=== PATIENT | male | born 1975 | race Caucasian/White ===

== ENCOUNTER → 2021-06-19 10:09 | Outpatient (REF) | payer OTHER, SELFPAY | LOC: ANHLAB 10:09 | PROVIDERS: PCP Family Medicine; Visit Provider Nurse Practitioner | DX: D23.72 Other benign neoplasm of skin of left lower limb, including hip (principal) | CPT/HCPCS: 88305 ==

== ENCOUNTER 2021-11-27 09:19 | Outpatient (CLI) | payer OTHER, SELFPAY ==
--- NOTE | 2021-11-27 11:30 | NEURO_ITS ---
Impression: # Complains of numbness of upper and lower extremities. # Evolving right Carpal Tunnel Syndrome. # Normal needle/EMG exam. # Clinical correlation recommended. Nerve Conduction Studies Anti Sensory Summary Table Stim Site NR Peak (ms) P-T Amp (?V) Site1 Site2 Delta-P (ms) Dist (cm) Kalyan (m/s) Left Median Anti Sensory (2-3nd Digit) Wrist 3.4 32.2 Wrist 2-3nd Digit 3.4 14.0 41 Wrist 3.6 31.4 Wrist 2-3nd Digit 3.4 14.0 41 Right Median Anti Sensory (2-3nd Digit) Wrist 3.5 56.5 Wrist 2-3nd Digit 3.5 14.0 40 Wrist 3.5 40.0 Wrist 2-3nd Digit 3.5 14.0 40 Left Radial Anti Sensory (Base 1st Digit) Wrist 1.9 27.0 Wrist Base 1st Digit 1.9 0.0 Right Radial Anti Sensory (Base 1st Digit) Wrist 1.9 25.5 Wrist Base 1st Digit 1.9 0.0 Left Sup Fibular Anti Sensory (Ant Lat Mall) 14 cm 3.5 12.6 14 cm Ant Lat Mall 3.5 16.0 46 Right Sup Fibular Anti Sensory (Ant Lat Mall) 14 cm 1.6 62.3 14 cm Ant Lat Mall 1.6 16.0 100 Left Sural Anti Sensory (Lat Mall) Calf 3.2 23.0 Calf Lat Mall 3.2 16.0 50 Right Sural Anti Sensory (Lat Mall) Calf 3.5 19.8 Calf Lat Mall 3.5 16.0 46 Left Ulnar Anti Sensory (5th Digit) Wrist 2.5 59.9 Wrist 5th Digit 2.5 14.0 56 Right Ulnar Anti Sensory (5th Digit) Wrist 2.4 56.4 Wrist 5th Digit 2.4 14.0 58 Motor Summary Table Stim Site NR Onset (ms) O-P Amp (mV) Site1 Site2 Delta-0 (ms) Dist (cm) Kalyan (m/s) Left Median Motor (Abd Poll Brev) Wrist 3.2 5.3 Elbow Wrist 4.5 26.0 58 Elbow 7.7 4.1 Right Median Motor (Abd Poll Brev) Wrist 3.4 7.9 Elbow Wrist 4.6 26.0 57 Elbow 8.0 4.2 Left Peroneal Motor (Vastus Med) Ankle 5.2 1.4 Popit Ankle 7.9 39.0 49 Popit 13.1 1.5 Right Peroneal Motor (Vastus Med) Ankle 4.9 3.1 Popit Ankle 7.0 36.0 51 Popit 11.9 5.2 Left Tibial Motor (Abd Navas Brev) Ankle 4.7 8.0 Knee Ankle 8.0 41.0 51 Knee 12.7 6.2 Right Tibial Motor (Abd Navas Brev) Ankle 4.3 2.9 Knee Ankle 7.7 39.0 51 Knee 12.0 3.1 Left Ulnar Motor (Abd Dig Minimi) Wrist 2.6 6.0 A Elbow Wrist 5.4 32.0 59 A Elbow 8.0 4.3 Right Ulnar Motor (Abd Dig Minimi) Wrist 2.2 9.6 A Elbow Wrist 4.6 27.0 59 A Elbow 6.8 9.0 F Wave Studies NR F-Lat (ms) L-R F-Lat (ms) Left Median (Mrkrs) (Abd Poll Brev) 28.26 0.00 Right Median (Mrkrs) (Abd Poll Brev) 28.26 0.00 Left Peroneal (Mrkrs) (EDB) 47.40 0.75 Right Peroneal (Mrkrs) (EDB) 46.65 0.75 Left Tibial (Mrkrs) (Abd Hallucis) 47.90 0.08 Right Tibial (Mrkrs) (Abd Hallucis) 47.82 0.08 Left Ulnar (Mrkrs) (Abd Dig Min) 27.42 0.80 Right Ulnar (Mrkrs) (Abd Dig Min) 28.22 0.80 EMG Side Muscle Nerve Root Ins Act Fibs Amp Dur Recrt Comment Right 1stDorInt Ulnar C8-T1 Nml Nml Nml Nml Nml Right Ext Indicis Radial (Post Int) C7-8 Nml Nml Nml Nml Nml Right Ext Digitorum Radial (Post Int) C7-8 Nml Nml Nml Nml Nml Right BrachioRad Radial C5-6 Nml Nml Nml Nml Nml Right PronatorTeres Median C6-7 Nml Nml Nml Nml Nml Right Abd Poll Brev Median C8-T1 Nml Nml Nml Nml Nml Right AntTibialis Dp Br Fibular L4-5 Nml Nml Nml Nml Nml Right Gastroc Tibial S1-2 Nml Nml Nml Nml Nml Right
== END 2021-11-27 09:20 | disposition home or self-care (01) ==
LOC: ANHNEURO 09:20
PROVIDERS: PCP Family Medicine; Visit Provider Physician Assistant
DX: R20.2 Paresthesia of skin (principal); G56.01 Carpal tunnel syndrome, right upper limb
CPT/HCPCS: 95886; 95913

== ENCOUNTER → 2023-05-31 11:58 | Outpatient (CLI) | payer OTHER, SELFPAY ==
--- NOTE | ~2023-05-31 | XR_ITS ---
EXAMINATION:XR_CERV2-3V_CR DATE: 05/31/2023 12:57 INDICATION: Bilateral paresthesias of the hands and feet TECHNIQUE: AP, lateral, lateral swimmers and odontoid views of the cervical spine are provided. COMPARISON: None FINDINGS: Alignment is normal. The odontoid process is intact. No fracture is identified. Vertebral b mahesh heights and disk spaces are normal. Prevertebral soft tissues are normal. IMPRESSION: 1. Unremarkable cervical spine. Reviewed, dictated and finalized at location A.
== END ==
PROVIDERS: PCP Family Medicine; Visit Provider Family Medicine
DX: R20.2 Paresthesia of skin (principal)
CPT/HCPCS: 72040

== ENCOUNTER → 2023-06-04 12:24 | Outpatient (CLI) | payer OTHER, SELFPAY ==
--- NOTE | ~2023-06-04 | XR_ITS ---
EXAMINATION: XR ribs LT 2V w CXR 2V DATE: 06/04/2023 12:48 INDICATION: Chest pain TECHNIQUE: Upright frontal and lateral views of the chest and 3 views of the left ribs were obtained. COMPARISON: None FINDINGS: No rib fractures identified. Lungs are clear with no focal airspace opacities, pulmonary edema, pleur al effusion or pneumothorax. Cardiomediastinal silhouette is normal. IMPRESSION: 1. No rib fracture or acute cardiopulmonary disease. Reviewed, dictated and finalized at location A.
== END ==
PROVIDERS: PCP Physician Assistant; Visit Provider Physician Assistant
DX: R07.9 Chest pain, unspecified (principal)
CPT/HCPCS: 71046; 71100

== ENCOUNTER 2023-06-22 10:00 | Outpatient (CLI) | payer OTHER, SELFPAY ==
--- NOTE | 2023-06-22 10:03 | EST_ITS ---
Patient Info Name: Villa Oliveira Age: 47 years : 1975 Gender: Male Ht: 66 in Wt: 210 lbs BSA: 2.14 m2 Exam Date: 06/22/2023 10:35 AM Exam Location: [facility] Stress Patient Status: Outpatient Admit Date: 06/22/2023 Staff Ordering Physician: Jeffrey Taylor PA-C Attending Provider: Jeffrey Taylor PA-C Exercise Technologist: Ivory Solorzano RDCS Nurse: Dunia Pak APN Exercise Physician: Harry Stevens DO Exam Type: CA stress test treadmill Study Info Indications R07.9 - Chest pain, unspecified A treadmill exercise stress test was performed. Summary 1. 1. Negative Hernan exercise stress test for ischemic ST changes by ECG criteria. 2. 2. Good functional capacity, achieving 12 METs of workload. 3. 3. Baseline hypertension. 4. 4. Appropriate HR response to exercise. 5. 5. Appropriate HR recovery at 1 minute post exercise. 6. 6. No imaging with stress testing. 7. 7. Patient informed of the above results. Protocol: Hernan Stress ECG Details Stage: REST Duration (min): 1 min : 4 sec Speed (mph): 0.0 Grade (%): 0 HR (bpm): 66 SBP (mmHg): 131 DBP (mmHg): 100 METS: --- Stage: REST Duration (min): 4 min : 37 sec Speed (mph): 0.0 Grade (%): 0 HR (bpm): 68 SBP (mmHg): 131 DBP (mmHg): 100 METS: --- Stage: STAGE 1 Duration (min): 1 min : 0 sec Speed (mph): 1.7 Grade (%): 10 HR (bpm): 92 SBP (mmHg): 131 DBP (mmHg): 100 METS: --- Stage: STAGE 1 Duration (min): 2 min : 0 sec Speed (mph): 1.7 Grade (%): 10 HR (bpm): 98 SBP (mmHg): 131 DBP (mmHg): 100 METS: --- Stage: STAGE 1 Duration (min): 3 min : 0 sec Speed (mph): 1.7 Grade (%): 10 HR (bpm): 98 SBP (mmHg): 157 DBP (mmHg): 89 METS: --- Stage: STAGE 2 Duration (min): 1 min : 0 sec Speed (mph): 2.5 Grade (%): 12 HR (bpm): 105 SBP (mmHg): 157 DBP (mmHg): 89 METS: --- Stage: STAGE 2 Duration (min): 2 min : 0 sec Speed (mph): 2.5 Grade (%): 12 HR (bpm): 113 SBP (mmHg): 137 DBP (mmHg): 90 METS: --- Stage: STAGE 2 Duration (min): 3 min : 0 sec Speed (mph): 2.5 Grade (%): 12 HR (bpm): 114 SBP (mmHg): 137 DBP (mmHg): 90 METS: --- Stage: STAGE 3 Duration (min): 1 min : 0 sec Speed (mph): 3.4 Grade (%): 14 HR (bpm): 122 SBP (mmHg): 142 DBP (mmHg): 88 METS: --- Stage: STAGE 3 Duration (min): 2 min : 0 sec Speed (mph): 3.4 Grade (%): 14 HR (bpm): 126 SBP (mmHg): 142 DBP (mmHg): 88 METS: --- Stage: STAGE 3 Duration (min): 3 min : 0 sec Speed (mph): 3.4 Grade (%): 14 HR (bpm): 132 SBP (mmHg): 142 DBP (mmHg): 88 METS: --- Stage: STAGE 4 Duration (min): 1 min : 0 sec Speed (mph): 4.2 Grade (%): 16 HR (bpm): 153 SBP (mmHg): 142 DBP (mmHg): 88 METS: --- Stage: STAGE 4 Duration (min): 2 min : 0 sec Speed (mph): 4.2 Grade (%): 16 HR (bpm): 165 SBP (mmHg): 142 DBP (mmHg): 88 METS:
== END 2023-06-22 10:01 | disposition home or self-care (01) ==
LOC: ANHCARD 10:01
PROVIDERS: PCP Family Medicine; Visit Provider Physician Assistant
DX: R07.9 Chest pain, unspecified (principal)
CPT/HCPCS: 93017

== ENCOUNTER 2023-06-28 09:34 | Day surgery (SDC) | payer OTHER, SELFPAY ==
[2023-05-26 14:21] VITALS: BMI 34.5
[2023-06-08 08:59] VITALS: BMI 34.1
--- NOTE | 2023-06-28 11:24 | P.HP_ITS ---
History of Present Illness History of Present Illness Consent: Risks, benefits, and alternatives have been discussed and questions answered. Patient agrees to proceed with procedure. Chief complaint: Neoplasm Screening Narrative: Villa Oliveira is a 47 year old male Presents for screening colonoscopy. Patient reports that his current weight appetite and bowel movements. Patient denies abdominal pain. Has had no bleeding. Family history is noncontributory. Review of Systems Review of Systems: Review of systems noncontributory. [facility] Surgical History Surgical History History of appendectomy History of vasectomy Family History Family History Father Hypertension Mother Hypertension Social History Social History Smoking status: Never smoker Second hand tobacco smoke exposure: No Alcohol intake: current Drinks per week: 10 Substance use: never Substance use type: does not use Living arrangements: with family Occupation/Education: occupation Gender identity (if verbalized by the patient): Male Spiritual care concerns: No Meds Home Medications and Allergies Home Medications Medication Instructions Recorded Confirmed Type gabapentin 300 mg capsule 300 mg PO QHS #90 caps 03/09/23 06/28/23 Rx scopolamine base 1 mg over 3 days 1 patch transdermal Q3D PRN motion 03/09/23 06/28/23 Rx transdermal patch sickness #4 ea sodium,potassium,mag sulfates 17.5 See Rx Instructions PO .COMPLEX 05/26/23 06/28/23 Rx gram-3.13 gram-1.6 gram oral soln #354 mL (Suprep Bowel Prep Kit) lisinopril 10 mg tablet 10 mg PO DAILY #90 tabs 06/01/23 06/28/23 Rx Allergies Allergy/AdvReac Type Severity Reaction Status Date / Time No Known Allergies Allergy Unknown Verified 06/28/23 11:22 Exam Narrative: Physical exam reveals patient to be alert. Vital signs stable. He T exam is unremarkable. Patient is anicteric. Lungs are clear to auscultation and percussion. Heart is without murmur or extra sounds. Abdomen bowel sounds are present soft nontender with no organomegaly. Digital external rectal exam is normal. Assessment and Plan Assessment and plan (1) Encounter for screening colonoscopy: Code(s): Z12.11 - Encounter for screening for malignant neoplasm of colon Status: Acute Assessment and Plan: Dense for screening colonoscopy. He appears to be at average risk for colon polyps. Further recommended given after endoscopy.
[2023-06-28 11:27] VITALS: BP 136/95; PULSE 72; RESP 16; TEMP 37; O2SAT 100
[2023-06-28] MEDS: LACTATED RINGERS 1,000 ML 150 ML IV CONT (11:30)
--- NOTE | 2023-06-28 11:42 | P.PNAN_ITS ---
Anes - Initial Pre Proc Eval Procedure: Operation Date: 06/28/23 12:30 Proposed Procedures p Screening Colonoscopy - Chinmay Brown MD Date/Time: 06/28/23 11:42 Surgeon: Chinmay Brown MD Pre Op Diagnosis: Neoplasm Screening Patient Data Age: 47 Gender: M Height: 1.68 m Weight: 96 kg Last Vital Signs Temp 37.0 C 06/28/23 11:27 Pulse 72 06/28/23 11:27 Resp 16 06/28/23 11:27 BP 136/95 H 06/28/23 11:27 Pulse Ox 100 06/28/23 11:27 O2 Del Method Room Air 06/28/23 11:27 Allergies Allergy/AdvReac Type Severity Reaction Status Date / Time No Known Allergies Allergy Unknown Verified 06/28/23 11:22 Home Medications Medication Instructions Recorded Confirmed Type gabapentin 300 mg capsule 300 mg PO QHS #90 caps 03/09/23 06/28/23 Rx scopolamine base 1 mg over 3 days 1 patch transdermal Q3D PRN motion 03/09/23 06/28/23 Rx transdermal patch sickness #4 ea sodium,potassium,mag sulfates 17.5 See Rx Instructions PO .COMPLEX 05/26/23 06/28/23 Rx gram-3.13 gram-1.6 gram oral soln #354 mL (Suprep Bowel Prep Kit) lisinopril 10 mg tablet 10 mg PO DAILY #90 tabs 06/01/23 06/28/23 Rx Patient hx anesthesia problems: none Family hx anesthesia problems: none Results Review: All pre-operative results and documents have been reviewed as part of the pre- operative evaluation. [facility] Surgical History Surgical History History of appendectomy History of vasectomy Family History Family History Father Hypertension Mother Hypertension Social History Social History Smoking status: Never smoker Second hand tobacco smoke exposure: No Alcohol intake: current Drinks per week: 10 Substance use: never Substance use type: does not use Living arrangements: with family Occupation/Education: occupation Gender identity (if verbalized by the patient): Male Spiritual care concerns: No Anes - Eval Final PreProcedure Day of Procedure 06/28/23 11:42 Patient weight: obese Heart: regular rate and rhythm Lungs: clear to auscultation Airway: Mallampati scale class II Neurological: alert and oriented Last oral intake: >/= 8 hours ASA classification: II Emergent: no Anesthetic plan: proceed Anesthesia type and monitoring: general GIVS and standard monitoring Results Review: All pre-operative results and documents have been reviewed as part of the pre- operative evaluation. Informed Consent: The patient's anesthetic plan and its attendant risks and benefits were discussed with the patient/family/POA. Questions were solicited and answers provided to the satisfaction of the patient/family/POA.
[2023-06-28 12:21] VITALS: BP 134/76; PULSE 75; RESP 15; O2SAT 98
[2023-06-28 12:31] VITALS: BP 131/72; PULSE 71; RESP 16; O2SAT 97
[2023-06-28 12:41] VITALS: BP 112/80; PULSE 60; RESP 15; O2SAT 98
--- NOTE | 2023-06-28 12:57 | WPDANESPN ---
Anes - Prog Note Post-Op Date/Time: 06/28/23 12:57 Cardiovascular status: normal Respiratory status: normal Airway patency: baseline Mental status: baseline Post-Op hydration status: normal Vital Signs: Last Vital Signs Temp 37.0 C 06/28/23 11:27 Pulse 60 06/28/23 12:41 Resp 15 06/28/23 12:41 BP 112/80 06/28/23 12:41 Pulse Ox 98 06/28/23 12:41 O2 Del Method Room Air 06/28/23 12:41 Pain Score (VAS): 0 I/O: Intake & Output 06/27/23 06/28/23 06/28/23 23:59 07:59 15:59 Intake Total 700 Balance 700 Patient Feedback: Patient satisfied with anesthetic care.
== END 2023-06-28 12:52 | disposition home or self-care (01) ==
PROVIDERS: PCP Family Medicine; Visit Provider Internal Medicine Gastroenterology
PROC: 0DJD8ZZ Inspection of Lower Intestinal Tract, Via Natural or Artificial Opening Endoscopic (ICD-10-PCS; CPT 45378; principal; 2023-06-28 12:30)
DX: Z12.11 Encounter for screening for malignant neoplasm of colon (principal)
CPT/HCPCS: 45378

== ENCOUNTER 2023-10-08 10:36 | Outpatient (CLI) | payer BC, SELFPAY ==
--- NOTE | ~2023-10-08 | US_ITS ---
EXAMINATION: US axilla BI DATE: 10/08/2023 11:04 INDICATION: Bilateral axillary pain and full feeling. TECHNIQUE: Multiple grayscale and Doppler ultrasound images of the lateral axillae were obtained. COMPARISON: None FINDINGS/IMPRESSION: Normal appearance to the fat and vessels at the bilateral axillae. No pathologically enlarged lymphad enopathy or other abnormal masses or fluid collections identified. Reviewed, dictated and finalized at location A. PULLER
== END 2023-10-08 10:37 | disposition home or self-care (01) ==
PROVIDERS: PCP Family Medicine; Visit Provider Physician Assistant Medical
DX: M79.621 Pain in right upper arm (principal); M79.622 Pain in left upper arm
CPT/HCPCS: 76882

== ENCOUNTER 2025-08-13 12:08 | Emergency (ER) | payer BC, SELFPAY ==
[2025-08-13 12:22] VITALS: BP 158/103; PULSE 59; RESP 20; TEMP 36.4; O2SAT 99
--- NOTE | 2025-08-13 12:31 | ED.EAR ---
HPI - Ear Problem General Chief complaint: Ear Stated complaint: Ear Time Seen by Provider: 08/13/25 12:31 Source: patient Mode of arrival: ambulatory Limitations: no limitations History of Present Illness HPI Narrative: 49 yo M presents with pressure to bilateral TMs since landing from plane a few days ago. R ear pressure worse than L. no change to hearing. No other complaints today. All systems reviewed and negative except as noted above. Related Data Allergies Allergy/AdvReac Type Severity Reaction Status Date / Time No Known Allergies Allergy Unknown Verified 08/13/25 12:26 [facility] Surgical History Surgical History History of appendectomy History of vasectomy Family History Family History Father Hypertension Mother Hypertension Social History Social History (Updated 12/21/23 @ 11:36 by Divina Mckay) Social History: Spouse Smoking status: Never smoker Second hand tobacco smoke exposure: No Alcohol intake: current Alcohol use details: Occasionally Substance use: never Substance use type: does not use Do You Feel Safe in your Home?: Yes Lack of Transportation: No Lack of Food: Never True Current Housing: I Have Housing Concerned About Future Housing: No Difficulty Paying Gas/Electric Bills: No Difficulty Paying for Meds: No Currently Unemployed: No Education: Don't Know Difficulty w/ Childcare or Family Care: No Living arrangements: with family Occupation/Education: occupation Gender identity (if verbalized by the patient): Male Sexual Orientation (if Verbalized by the Patient): Straight or Heterosexual Spiritual care concerns: No Comments At time of signature, agree with nursing past medical, surgical, social and family history. There is no relevant family history pertinent to the presenting complaint. Exam Narrative: GENERAL: This is a well-nourished, well-developed patient, in no apparent distress. HEAD: normocephalic, atraumatic. EYES: PERRL. Sclera clear/white. Vision is grossly intact. EARS: External ears normal, auditory canals clear and without drainage, Fluid bilateral TMs, slightly bulging. No erythema or perforation bilaterally. Hearing grossly intact. NOSE: External nose normal with no obvious nasal discharge, nares without redness, no rhinorrhea. THROAT: Mucous membranes moist, posterior pharynx clear. NECK: Neck supple, non-tender without lymphadenopathy, masses or thyromegaly. CARDIOVASCULAR: Regular rate and rhythm without murmurs, gallops, or rubs. RESPIRATORY: Clear to auscultation. Breath sounds equal bilaterally. No wheezes, rales, or rhonchi. SKIN: warm, Dry, intact with no suspicious lesions or rash, good texture and turgor. NEURO: awake, alert, and oriented to person, place and time. There were no obvious focal neurologic abnormalities. EXTREMITIES: No joint tenderness, effusion, or edema noted. Course Course Level of Care: Express Care Visit Vital Signs Vital signs: Vital Signs Temperature 36.4 C L 08/13/25 12:22 Pulse Rate 59 L 08/13/25 12:22 Respiratory Rate 20 08/13/25 12:22 Blood Pressure 158/103 H 08/13/25 12:22 Pulse Oximetry 99 08/13/25 12:22 Oxygen Delivery Room Air 08/13/25 12:22 Temperature 36.4 C L 08/13/25 12:22 Pulse Rate 59 L 08/13/25 12:22 Respiratory Rate 20 08/13/25 12:22 Blood Pressure 158/103 H 08/13/25 12:22 Pulse Oximetry 99 08/13/25 12:22 Oxygen Delivery Room Air 08/13/25 12:22 Reviewed Medical Decision Making MDM Narrative Medical decision making narrative: will treat with Zyrtec, Flonase, Medrol Dosepak. Recommend follow-up with ENT if not improving. Patient's blood pressure is elevated today. Has not taking his lisinopril For several days. Recommend he restart medication today. No chest pain or shortness of breath. Vital Signs Vital Signs: Vital Signs Temperature 36.4 C L 08/13/25 12:22 Pulse Rate 59 L 08/13/25 12:22 Respiratory Rate 20 08/13/25 12:22 Blood Pressure 158/103 H 08/13/25 12:22 Pulse Oximetry 99 08/13/25 12:22 Oxygen Delivery Room Air 08/13/25 12:22 Temperature 36.4 C L 08/13/25 12:22 Pulse Rate 59 L 08/13/25 12:22 Respiratory Rate 20 08/13/25 12:22 Blood Pressure 158/103 H 08/13/25 12:22 Pulse Oximetry 99 08/13/25 12:22 Oxygen Delivery Room Air 08/13/25 12:22 Discharge Plan Discharge Clinical Impression: Acute dysfunction of both eustachian tubes, Hypertension, uncontrolled Patient Disposition: Home Condition: Stable Instructions: Fluid In The Ear (Serous Otitis Media) (ED) Additional Instructions: take medications as prescribed. If symptoms are not improving in the next 3-4 weeks follow-up with hearing specialist. Your blood pressure was elevated today. Take your lisinopril when you get home. Take lisinopril daily as prescribed. Patient Language: Iraqi Prescriptions: New methylprednisolone [Medrol (Darrell)] 4 mg tablets,dose pack See Rx Instructions PO .COMPLEX Qty: 21 0RF Rx Instructions: orally per package directions fluticasone propionate [Flonase Allergy Relief] 50 mcg/actuation spray,suspension 1 spray intranasal BID Qty: 16 0RF Rx Instructions: administer into each nostril cetirizine 10 mg capsule 10 mg PO DAILY Qty: 30 0RF No Action lisinopril 30 mg tablet 30 mg PO DAILY Qty: 90 2RF Follow-up/Referrals: Ramón Ray MD [Primary Care Provider, Family Practice] Erick Lackey MD [Physician, Ear, Nose, Throat] Referral Note: Follow-up with ENT specialist if ear pain not improving Time of Disposition: 12:39
== END 2025-08-13 12:43 | disposition home or self-care (01) ==
PROVIDERS: Emergency Provider Nurse Practitioner Family; PCP Family Medicine
DX: H69.93 Unspecified Eustachian tube disorder, bilateral (principal); I10 Essential (primary) hypertension
CPT/HCPCS: 99213; G0463